=== PATIENT | male | born 1980 | race Two or more races ===

== ENCOUNTER 2017-06-18 20:31 | Emergency (ER) | payer MEDICAID ==
[~2017-06-18] VITALS: Ht 175.3 cm; Wt 77.1 kg
[2017-06-18] MEDS ORDERED: LIDOCAINE HCL 1% 20 ML VIAL IJ ONE (21:45)
[2017-06-18] MEDS ORDERED: LIDOCAINE HCL 1% 20 ML VIAL ONE (21:56)
[2017-06-18] MEDS ORDERED: CEPHALEXIN MONOHYDRATE 500 MG CAPSULE PO ONE (22:00)
[2017-06-18] MEDS ORDERED: HYDROCODONE/APAP 5-325MG TABLET PO ONE (22:00)
[2017-06-18] MEDS ORDERED: predniSONE 50 MG TABLET PO ONE (22:00)
--- NOTE | 2017-06-18 22:06 | NUR ---
Patient discharged to home in stable conditon. Written and verbal after care instructions given with RX and work excuse not. Patient verbalizes understanding of instructions.
== END 2017-06-18 22:07 | disposition home or self-care (01) ==
LOC: ER 20:33
DX: M70.32 Other bursitis of elbow, left elbow (principal)
CPT/HCPCS: 87070; 87205; A4663; J3490

== ENCOUNTER 2017-06-20 22:34 | Emergency (ER) | payer MEDICAID ==
[~2017-06-20] VITALS: Ht 175.3 cm; Wt 77.1 kg
--- NOTE | 2017-06-20 23:40 | NUR ---
PATIENT WAS SEEN AND EVALUATED BY DR GUTIERREZ ROOM 02B.
[2017-06-20] MEDS ORDERED: methylPREDNISolone ACETATE 40 MG VIAL IM ONE (23:45)
[2017-06-20] MEDS ORDERED: LIDOCAINE HCL 1% 20 ML VIAL IJ ONE (23:45)
[2017-06-20] MEDS ORDERED: methylPREDNISolone ACETATE 40 MG VIAL ONE (23:58)
--- NOTE | 2017-06-21 00:16 | NUR ---
Patient discharged to home in stable conditon. Written and verbal after care instructions given. Patient verbalizes understanding of instructions.
[2017-06-21 00:19] VITALS: BP 140/70
== END 2017-06-21 00:21 | disposition home or self-care (01) ==
LOC: ER 22:35
DX: M70.22 Olecranon bursitis, left elbow (principal); Y93.89 Activity, other specified
CPT/HCPCS: A4663; J1030; J3490